=== PATIENT | female | born 1990 | race African-American/Black ===

== ENCOUNTER 2020-09-23 15:43 | Emergency (ER) | payer OTHER ==
[2020-09-23 17:25] LABS: Absolute Lymphocytes (CBC) 2.1 K/uL (0.7-4.9); Basophils % 1.3 % (0-1.3); Hematocrit 42.4 % (36.0-45.0); MPV 8.3 fL (7.6-11.3); RBC Red Blood Cell Count 4.52 M/uL (3.86-4.86)
[2020-09-23 17:28] LABS: Urine Blood 3+ (Negative); Urine Glucose Negative (Negative); Urine Protein 1+ (Negative); Urine pH 5.5 (5.0-7.0)
[2020-09-23 17:47] LABS: BUN Blood Urea Nitrogen 8 mg/dL (7-18); Bicarbonate 28 mmol/L (21-32); Glucose Level 96 mg/dL (74-106); Potassium 3.7 mmol/L (3.5-5.1); Sodium Level 133 mmol/L (136-145)
[2020-09-23 17:51] LABS: Urine Bacteria 20-50 /HPF (<20)
[2020-09-23 18:03] LABS: HCG, Quantitative 3975 mIU/mL (1-3)
[2020-09-23] MEDS ORDERED: ACETAMINOPHEN 500 MG TAB ONE (18:08)
[2020-09-23] MEDS ORDERED: NA CHLORIDE 0.9% 1,000 ML ONE (18:08)
[2020-09-23] MEDS ORDERED: DICYCLOMINE HCL 10 MG CAP ONE (18:08)
--- NOTE | 2020-09-23 18:56 | ER ---
Nurse's Notes [facility] Name: Adam Lim Age: 30 yrs Sex: Female : 1990 Arrival Date: 09/23/2020 Time: 15:45 Bed 18 Private MD: Diagnosis: Threatened ;Urinary tract infection, site not specified Presentation: 09/23 15:52 Chief complaint: Patient states: vaginal bleeding and abd cramping started today, sv unknown amount of weeks . LMP July 2020. Coronavirus screen: Client denies travel out of the [place] in the last 14 days. At this time, the client does not indicate any symptoms associated with coronavirus-19. Ebola Screen: No symptoms or risks identified at this time. Risk Assessment: Do you want to hurt yourself or someone else? Patient reports no desire to harm self or others. Onset of symptoms was September 23, 2020. 15:52 Method Of Arrival: Ambulatory sv 15:52 Acuity: PATY 3 sv 15:52 Initial Sepsis Screen: Does the patient meet any 2 criteria? HR > 90 bpm. No. Patient's sv initial sepsis screen is negative. Does the patient have a suspected source of infection? No. Patient's initial sepsis screen is negative. Triage Assessment: 15:52 General: Appears in no apparent distress. comfortable, Behavior is calm, cooperative, sv appropriate for age. Pain: Complains of pain in abdomen Pain currently is 8 out of 10 on a pain scale. Neuro: Level of Consciousness is awake, alert, obeys commands, Oriented to person, place, time, situation, Gait is steady. Respiratory: Respiratory effort is even, unlabored. 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 - Social history:: Smoking status: unknown. Screenin:00 Abuse screen: Denies threats or abuse. Denies injuries from another. Nutritional wh screening: No deficits noted. Tuberculosis screening: No symptoms or risk factors identified. Fall Risk None identified. Assessment: 19:00 General: Appears in no apparent distress. Behavior is calm, cooperative, appropriate wh for age. Pain: Complains of pain in abdomen Quality of pain is described as crampy. Neuro: Level of Consciousness is awake, alert, obeys commands, Oriented to person, place, time, situation, Appropriate for age. Cardiovascular: Capillary refill < 3 seconds. Respiratory: Airway is patent Respiratory effort is even, unlabored, Respiratory pattern is regular, symmetrical. GI: Abdomen is non-distended. : Reports vaginal bleeding that is. EENT: No signs and/or symptoms were reported regarding the EENT system. Derm: Skin is intact, is healthy with good turgor, Skin is pink, warm \T\ dry. normal. Musculoskeletal: Circulation, motion, and sensation intact. Vital Signs: 15:52 BP 123 / 80; Pulse 98; Resp 18; Temp 97.5; Pulse Ox 99% ; Weight 95.25 kg; Height 5 ft. sv 2 in. (157.48 cm); Pain 8/10; 19:15 BP 109 / 53; Pulse 78; Resp 18; Pulse Ox 100% on R/A; wh 15:52 Body Mass Index 38.41 (95.25 kg, 157.48 cm) sv ED Course: 15:45 Patient arrived in ED. mr 15:53 Triage completed. sv 15:53 Arm band placed on. sv 16:27 Asaf Vasquez PA is PHCP. cp 16:27 Jaziel Huggins MD is Attending Physician. cp 17:36 Jazmín Infante is Primary Nurse. kg 18:34 US Transvaginal Ob In Process Unspecified. EDMS 18:41 Urine --Ancillary (enter results) Sent. sv 18:41 Quantitative Hcg Sent. sv 18:41 Basic Metabolic Panel Sent. sv 18:55 Antwon Graves MD is Referral Physician. cp 19:00 Patient has correct armband on for positive identification. Placed in gown. Bed in low wh position. Call light in reach. Side rails up X 1. Pulse ox on. NIBP on. 19:24 No provider procedures requiring assistance completed. IV discontinued, intact, wh bleeding controlled, No redness/swelling at site. Administered Medications: 17:50 Drug: Bentyl (dicyclomine) 20 mg Route: PO; kg 18:25 Follow up: Response: No adverse reaction kg 17:50 Drug: Tylenol 1000 mg Route: PO; kg 18:26 Follow up: Response: No adverse reaction kg 18:24 Drug: NS 0.9% 1000 ml Route: IV; Rate: 1 bolus; Site: right antecubital; kg 19:25 Follow up: Response: No adverse reaction; IV Status: Completed infusion Outcome: 18:55 Discharge ordered by . cp 19:24 Discharged to home ambulatory. 19:24 Condition: stable 19:24 Discharge instructions given to patient, Instructed on discharge instructions, follow up and referral plans. medication usage, POC Demonstrated understanding of instructions, follow-up care, medications, POC Prescriptions given X 2. 19:25 Patient left the ED. Signatures: Dispatcher [employer] EDMS Sharon Menard RN RN Ryanne Cruz Corey, PA PA cp Habalo, Winsy RN RN Jazmín Infante kg Corrections: (The following items were deleted from the chart) 15:54 15:52 Pulse 98bpm; Resp 18bpm; Pulse Ox 99%; Temp 97.5F; sv
--- NOTE | 2020-09-23 18:56 | EDPHYS ---
Physician Documentation [facility] Name: Adam Lim Age: 30 yrs Sex: Female : 1990 Arrival Date: 09/23/2020 Time: 15:45 Bed 18 Private MD: ED Physician Jaziel Huggins HPI: 09/23 16:45 This 30 yrs old Black Female presents to ER via Ambulatory with complaints of Vaginal cp Bleeding, + Preg <12wks. 16:45 The patient presents to the emergency department with abdominal pain, of the right cp lower quadrant and left lower quadrant, that started today, described as crampy, vaginal bleeding, with clots. course: care: none, Leakage of Fluid: none appreciated, Ultrasound: the patient has not had an ultrasound. Previous pregnancies: in previous pregnancies patient has had vaginal delivery, no complications. Associated signs and symptoms: Pertinent negatives: dysuria, fever, vomiting. 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 - Social history:: Smoking status: unknown. ROS: 16:50 : Positive for vaginal bleeding, Negative for urinary symptoms. cp 16:50 Constitutional: Negative for body aches, chills, fever. cp Exam: 16:55 Constitutional: The patient appears in no acute distress, alert, awake, comfortable, cp non-toxic, well developed, well nourished. 16:55 Head/Face: Normocephalic, atraumatic. cp 16:55 Eyes: Periorbital structures: appear normal, Conjunctiva: normal, no exudate, no injection, Lids and lashes: appear normal, bilaterally. 16:55 ENT: External ear(s): are unremarkable, Nose: is normal, Posterior pharynx: Airway: no evidence of obstruction, patent. 16:55 Chest/axilla: Inspection: normal, Palpation: is normal, no crepitus, no tenderness. 16:55 Cardiovascular: Rate: normal. 16:55 Respiratory: the patient does not display signs of respiratory distress, Respirations: normal, no use of accessory muscles, no retractions, labored breathing, is not present. 16:55 Abdomen/GI: Inspection: abdomen appears normal, Bowel sounds: active, all quadrants, Palpation: soft, in all quadrants, mild abdominal tenderness, in the right lower quadrant and left lower quadrant, rebound tenderness, is not appreciated, voluntary guarding, is not appreciated, involuntary guarding, is not appreciated. 16:55 Back: pain, is absent, ROM is normal. Vital Signs: 15:52 BP 123 / 80; Pulse 98; Resp 18; Temp 97.5; Pulse Ox 99% ; Weight 95.25 kg; Height 5 ft. sv 2 in. (157.48 cm); Pain 8/10; 19:15 BP 109 / 53; Pulse 78; Resp 18; Pulse Ox 100% on R/A; wh 15:52 Body Mass Index 38.41 (95.25 kg, 157.48 cm) sv MDM: 16:30 Patient medically screened. cp 18:00 Differential diagnosis: STD, ectopic . 18:55 Data reviewed: vital signs, nurses notes, lab test result(s), radiologic studies, cp ultrasound, and as a result, I will discharge patient. 09/23 16:42 Order name: Quantitative Hcg 09/23 16:42 Order name: Abo/rh Typing; Complete Time: 18:11 09/23 16:42 Order name: Basic Metabolic Panel 09/23 16:42 Order name: CBC with Diff; Complete Time: 17:35 09/23 16:43 Order name: Urine Microscopic Only; Complete Time: 18:11 09/23 18:11 Interpretation: Normal except: URBC 5-10; UBACT 20-50. 09/23 16:43 Order name: HCG, Quantitative; Complete Time: 18:11 EDMI 09/23 18:12 Interpretation: Abnormal: HCGQ 3975. 09/23 16:42 Order name: US Transvaginal Ob; Complete Time: 19:07 09/23 16:43 Order name: Basic Metabolic Panel; Complete Time: 18:11 EDMI 09/23 18:12 Interpretation: Normal except: NA 133. 09/23 17:28 Order name: Urine Dipstick-Ancillary; Complete Time: 17:35 EDMI 09/23 17:35 Interpretation: Normal except: UBLD 3+; UPROT 1+; U NIT Positive. 09/23 17:29 Order name: Urine --Ancillary (enter results) em1 09/23 17:29 Order name: Urine --Ancillary; Complete Time: 18:11 EDMI 09/23 17:52 Order name: Urine Culture [facility] 09/23 18:22 Order name: ABO/RH no charge; Complete Time: 18:47 EDMI 09/23 16:29 Order name: Urine Dipstick-Ancillary (obtain specimen); Complete Time: 17:28 09/23 16:29 Order name: Urine Test (obtain specimen); Complete Time: 17:28 09/23 16:42 Order name: IV Saline Lock; Complete Time: 18:44 09/23 16:42 Order name: Labs collected and sent; Complete Time: 18:44 09/23 16:42 Order name: NPO; Complete Time: 18:44 cp Administered Medications: 17:50 Drug: Bentyl (dicyclomine) 20 mg Route: PO; kg 18:25 Follow up: Response: No adverse reaction kg 17:50 Drug: Tylenol 1000 mg Route: PO; kg 18:26 Follow up: Response: No adverse reaction kg 18:24 Drug: NS 0.9% 1000 ml Route: IV; Rate: 1 bolus; Site: right antecubital; kg 19:25 Follow up: Response: No adverse reaction; IV Status: Completed infusion wh Disposition: 19:00 Chart complete. cp Disposition: 09/23/20 18:55 Discharged to Home. Impression: Threatened , Urinary tract infection, site not specified. - Condition is Stable. - Discharge Instructions: Threatened Miscarriage, Vaginal Bleeding During , First Trimester, Pelvic Rest. - Prescriptions for Vitamin 27- 0.8 mg Oral Tablet - take 1 tablet by ORAL route once daily; 60 tablet. Macrobid 100 mg Oral Capsule - take 1 capsule by ORAL route every 12 hours for 7 days; 14 capsule. - Medication Reconciliation Form, Thank You Letter, Antibiotic Education, Prescription Opioid Use form. - Follow up: Antwon Graves MD; When: 48 Hours; Reason: Repeat Beta-HCG (48 Hours). - Problem is new. - Symptoms have improved. Addendum: 09/25/2020 14:55 Co-signature as Attending Physician, Jaziel Huggins MD I agree with the assessment and k dr plan of care. Signatures: Dispatcher [employer] Sharon Nina, RN RN sv Jaziel Huggins MD MD [facility] Asaf Vasquez PA PA cp Burak Keith, RN RN Jazmín Infante kg Corrections: (The following items were deleted from the chart) 09/23 19:14 18:55 09/23/2020 18:55 Discharged to Home. Impression: Threatened . Condition cp is Stable. Forms are Medication Reconciliation Form, Thank You Letter, Antibiotic Education, Prescription Opioid Use. Follow up: Antwon Graves; When: 48 Hours; Reason: Repeat Beta-HCG (48 Hours). Problem is new. Symptoms have improved. cp 19:25 19:14 09/23/2020 18:55 Discharged to Home. Impression: Threatened ; Urinary wh tract infection, site not specified. Condition is Stable. Discharge Instructions: Threatened Miscarriage, Vaginal Bleeding During , First Trimester, Pelvic Rest. Prescriptions for Vitamin 27-0.8 mg Oral Tablet - take 1 tablet by ORAL route once daily; 60 tablet. and Forms are Medication Reconciliation Form, Thank You Letter, Antibiotic Education, Prescription Opioid Use. Follow up: Antwon Graves; When: 48 Hours; Reason: Repeat Beta-HCG (48 Hours). Problem is new. Symptoms have improved. cp
--- NOTE | 2020-09-23 19:03 | RAD REPORT ---
EXAM DESCRIPTION: US - Transvaginal OB - 09/23/2020 6:35 pm CLINICAL HISTORY: ABD CRAMPING, COMPARISON: No comparisons FINDINGS: A single gestational sac is seen within the uterus. The shape of the sac is somewhat irreg ular. No yolk sac or embryo detected. Right ovary is normal in size with normal blood flow. Left ovary was not visualized due to bowel gas. IMPRESSION: Irregularly-shaped gestational sac is noted without evidence of a yolk sac or pole . This can still represent a blighted ovum versus early IUP. Recommend serial HCG levels and follow-up pelvic sonography in 10-12 days.
[2020-09-23 19:32] VITALS: TEMP 97.5
[2020-09-23 19:33] VITALS: BP 109/53; O2SAT 100
== END 2020-09-23 19:25 | disposition home or self-care (01) ==
LOC: ER 15:43
DX: O20.0 Threatened abortion (principal); O23.41 Unspecified infection of urinary tract in pregnancy, first trimester; Z3A.00 Weeks of gestation of pregnancy not specified
CPT/HCPCS: 87088; 85025; 87086; 80048; 36415; 86900; 81025; 86901; 84702; 87077; 87186; 76817; 96360; 99284; J7030; 81003; 81015